=== PATIENT | female | born 1975 | race Caucasian/White ===

== ENCOUNTER 2019-07-08 14:22 | Outpatient (CLI) | payer BC ==
--- NOTE | 2019-07-08 14:42 | RAD ---
EXAM: CHEST TWO VIEWS: 07/08/19 HISTORY: Osteoarthritis. FINDINGS: Minimal cardiomegaly. No confluent pneumonia, overt edema or pleural effusion. IMPRESSION: Cardiomegaly without other acute process. POS: OFF
== END 2019-07-08 14:23 | disposition home or self-care (01) ==
LOC: BICRAD 14:22
PROVIDERS: ATTEND Internal Medicine Rheumatology
DX: M19.90 Unspecified osteoarthritis, unspecified site (principal); I51.7 Cardiomegaly
CPT/HCPCS: 71046

== ENCOUNTER 2020-12-09 11:29 | Outpatient (CLI) | payer BC ==
--- NOTE | 2020-12-09 13:40 | RAD ---
Right knee 2 views: 12/09/2020 COMPARISON: None HISTORY: Osteoarthritis FINDINGS: There is severe lateral compartment narrowing and moderate medial compartment narrowing. No knee joint effusion, displaced fracture, or evidence of dislocation. No significant osteophyte formation or subchondral sclerosis. IMPRESSION: Joint space narrowing as above.
--- NOTE | 2020-12-09 13:52 | RAD ---
EXAM: 2 views of the left knee HISTORY: Left knee pain COMPARISON: None FINDINGS: No knee effusion is seen. There is no evidence of acute fracture or dislocation. Mild trico mpartmental osteophytes are seen consistent with osteoarthritis. IMPRESSION: Mild left knee osteoarthritis
== END 2020-12-09 11:30 | disposition home or self-care (01) ==
LOC: BICRAD 11:29
PROVIDERS: ATTEND Internal Medicine Rheumatology
DX: M17.0 Bilateral primary osteoarthritis of knee (principal); M25.861 Other specified joint disorders, right knee

== ENCOUNTER 2021-06-13 13:55 | Outpatient (CLI) | payer BC | END 2021-06-13 13:56 | disposition home or self-care (01) | LOC: BICULT 13:55 | PROVIDERS: ATTEND Physician Assistant | DX: E04.1 Nontoxic single thyroid nodule (principal); E03.9 Hypothyroidism, unspecified | CPT/HCPCS: 76536 ==